=== PATIENT | male | born 1940 | race Hispanic/Latino ===

== ENCOUNTER → 2020-09-23 | Outpatient (CLI) | payer MEDICARE | LOC: RAD 13:42 | PROVIDERS: ATTEND Internal Medicine | DX: M25.551 Pain in right hip (principal); R05 Cough; F17.200 Nicotine dependence, unspecified, uncomplicated | CPT/HCPCS: 71046; 72170 ==

== ENCOUNTER → 2020-10-07 | Outpatient (CLI) | payer MEDICARE ==
[~2020-10-07] MED LIST: IOPAMIDOL 370 MG/ML 200 ML INFUS..BTL INJ ONE; SODIUM CHLORIDE 0.9% 50ML 50 ML ONE
[2020-10-07 09:11] LABS: BLOOD UREA NITROGEN 15 mg/dL (7-26); BUN/CREATININE RATIO 19 (6-25); CREATININE, SERUM 0.77 mg/dL (0.72-1.25); EST GLOMERULAR FILTRATION RATE > 60 ML/MIN (60-)
== END ==
LOC: CT 08:22
PROVIDERS: ATTEND Internal Medicine
DX: R10.9 Unspecified abdominal pain (principal)
CPT/HCPCS: 36415; 74177; 82565; 84520; Q9967

== ENCOUNTER → 2020-12-23 | Outpatient (CLI) | payer MEDICARE | LOC: RAD 07:25 | PROVIDERS: ATTEND Internal Medicine | DX: M79.641 Pain in right hand (principal) ==

== ENCOUNTER → 2022-07-03 | Outpatient (CLI) | payer MEDICARE | LOC: RAD 15:01 | PROVIDERS: ATTEND Internal Medicine Critical Care Medicine | DX: R06.00 Dyspnea, unspecified (principal) | CPT/HCPCS: 71046 ==